=== PATIENT | female | born 1990 | race Caucasian/White ===

== ENCOUNTER 2016-07-18 21:02 | Emergency (ER) | payer OTHER ==
[~2016-07-18] VITALS: Ht 167.6 cm; Wt 91.3 kg
[~2016-07-18 21:02] MED LIST: ADVAIR 250/501 DISK IH; ANXIETY PO; Birth control PO; DEPRESSION PO; ERGOCALCIF50000 UNIT PO; ESCITALOPRAM OXA5 MG PO; FLEXERIL10 MG PO; HYDROCODON-ACE1 EAC7 PO; LORTAB 5-325 M1 EACH PO; MOTRIN800 MG PO; NORCO 7.5/321 TABLET PO; PERCOCET 5/31 TABLET PO; PREDNISONE10 MG PO; SERTRALINE HCL25 MG PO; TRAZODONE HCL50 MG PO; TRINESSA1 EACH PO; VALIUM5 MG PO; VYVANSE20 MG PO; ZOFRAN4 MG PO
[2016-07-18] MEDS ORDERED: FLEXERIL10 MG PO (21:33)
[2016-07-18] MEDS ORDERED: ZOFRAN ODT4 MG PO (21:33)
[2016-07-18] MEDS ORDERED: NAPROSYN500 MG PO (21:33)
[2016-07-18 22:17] VITALS: BP 119/82
== END 2016-07-18 22:18 | disposition home or self-care (01) ==
LOC: EME 21:02 → RME 21:02
DX: S16.1XXA Strain of muscle, fascia and tendon at neck level, initial encounter (principal); S39.012A Strain of muscle, fascia and tendon of lower back, initial encounter; V43.62XA Car passenger injured in collision with other type car in traffic accident, initial encounter; R11.0 Nausea
CPT/HCPCS: 99281; 99284

== ENCOUNTER → 2017-06-27 | Outpatient (CLI) | payer OTHER ==
[~2017-06-27] MED LIST changes: +NAPROSYN500 MG PO; +ZOFRAN ODT4 MG PO
== END | disposition home or self-care (01) ==
LOC: CDC 14:12
DX: Z51.81 Encounter for therapeutic drug level monitoring (principal)
CPT/HCPCS: 93000

== ENCOUNTER 2017-08-23 20:21 | Emergency (ER) | payer OTHER ==
[~2017-08-23] VITALS: Ht 167.6 cm; Wt 92.0 kg
[2017-08-23] MEDS ORDERED: CLINDAMYCIN HC300 MG PO (21:12)
[2017-08-23] MEDS ORDERED: MOTRIN600 MG PO (21:12)
[2017-08-23 21:31] VITALS: BP 114/82
== END 2017-08-23 21:32 | disposition home or self-care (01) ==
LOC: EXP 20:21 → EME 20:21 → EXP 21:32
DX: S66.911A Strain of unspecified muscle, fascia and tendon at wrist and hand level, right hand, initial encounter (principal); W01.0XXA Fall on same level from slipping, tripping and stumbling without subsequent striking against object, initial encounter; L02.412 Cutaneous abscess of left axilla
CPT/HCPCS: 73130; 99281; 99284